=== PATIENT | female | born 2000 | race African-American/Black ===

== ENCOUNTER 2022-05-09 19:07 | Emergency (ER) | payer OTHER ==
[~2022-05-09] VITALS: Ht 165.1 cm; Wt 62.6 kg
[2022-05-09 19:23] VITALS: BP 134/83
--- NOTE | 2022-05-09 19:31 | NUR ---
TO BED 2 FOLLOWING TRIAGE
--- NOTE | 2022-05-09 19:52 | NUR ---
22 Y/O FEMALE BIBS FROM HOME, C/O ABD PAIN X1 WK. PT STATES SHE HAS BEEN IN PAIN FOR THE LAST WEEK BUT GOT WORSE THESE LAST 2 DAYS. PT COMPLAINING OF CONSTANT PAIN BELOW HER BELLY BUTTON THAT RADIATES TO HER WHOLE BODY. 7/10 AND SHARP PAIN, NAUSEA, WEAKNESS, AND FEVER. DENIES DIARREA OR VOMIT. SKIN IS PINK, WARM, AND DRY. UNLABORED BREATHING AND SPEAKING IN FULL SENTENCES. AMBULATORY W/O ASSISTANCE. PT STATES THAT SHE HAS HAD A PERENIAL TEAR FROM [place] [facility] AND ASSOCIATED PAIN WITH URINATION. PT CLAIMS THERE IS WHITE VAGINAL DC W/O ODOR. HX: ANX AND APPENDECTOMY NKA MED: CONTROL
--- NOTE | 2022-05-09 19:59 | NUR ---
MATH INSTRUCTOR AT BEDSIDE
[2022-05-09 20:09] LABS: BASOPHILS % (AUTO) 0.4 % (0.0-2.0); EOSINOPHILS % (AUTO) 0.2 % (0.0-4.0); HEMATOCRIT 40.5 % (36-48); HEMOGLOBIN 13.4 g/dL (12.0-16.0); LYMPHOCYTES # (AUTO) 1.8 K/uL (2.5-16.5); LYMPHOCYTES % (AUTO) 23.5 % (20.5-51.1); MEAN CORPUSCULAR HEMOGLOBIN 29 pg (27-31); MEAN CORPUSCULAR HGB CONC 33 g/dL (33-37); MEAN CORPUSCULAR VOLUME 88.9 fL (80-94); MONOCYTES # (AUTO) 0.8 K/uL (0.8-1.0); NEUTROPHILS # (AUTO) 5.1 K/uL (1.8-7.7); NEUTROPHILS % (AUTO) 65.9 % (42.2-75.2); PLATELET COUNT (AUTO) 264 K/uL (140-450); RED BLOOD CELL COUNT(AUTO) 4.56 MIL/uL (4.20-5.40); RED CELL DISTRIBUTION WIDTH 12.7 % (11.6-13.7); WHITE BLOOD COUNT (AUTO) 7.8 K/uL (4.8-10.8)
[2022-05-09 20:24] LABS: BILIRUBIN,URINE NEGATIVE (NEGATIVE); BLOOD, URINE 1+ (NEGATIVE); COLOR,URINE YELLOW (YELLOW); LEUKOCYTE ESTERASE ,URINE TRACE (NEGATIVE); NITRITE, URINE NEGATIVE (NEGATIVE); UGLUCOSE NEGATIVE (NEGATIVE)
[2022-05-09 20:30] LABS: APPEARANCE,URINE HAZY (CLEAR)
--- NOTE | 2022-05-09 20:30 | NUR ---
DR MIRELES AT BEDSIDE EXAMINING PT
[2022-05-09 20:36] LABS: ALBUMIN 3.5 g/dL (3.4-5.0); ANION GAP 15.4 (8-16); CARBON DIOXIDE 25.2 mmol/L (21-32); CREATININE 1.1 mg/dL (0.6-1.3); POTASSIUM 3.6 mmol/L (3.5-5.1); TOTAL BILIRUBIN 0.4 mg/dL (0.0-1.0)
[2022-05-09] MEDS ORDERED: LORazepam 2 MG/ML VIAL IVP ONE (20:40)
[2022-05-09] MEDS ORDERED: KETOROLAC 30 MG/ML VIAL IVP ONE (20:40)
[2022-05-09] MEDS ORDERED: NACL 0.9% 1,000 ML IV ONE (20:40)
[2022-05-09 20:43] LABS: RBC,URINE 0-5 /HPF (0-5)
[2022-05-09] MEDS ORDERED: cefTRIAXone 1,000 MG VIAL ONE (21:01)
--- NOTE | 2022-05-09 22:15 | NUR ---
ULTRASOUND AT BEDSIDE
[2022-05-09] MEDS ORDERED: CEPH250C16 PO (22:16)
[2022-05-09] MEDS ORDERED: IBUP-2213 PO (22:16)
--- NOTE | 2022-05-09 22:39 | NUR ---
dr valdez at bedside
[2022-05-09] MEDS ORDERED: ACETAMINOPHEN EXTRA STRENGTH 500 MG TAB PO ONE (23:15)
[2022-05-09] MEDS ORDERED: CEPH-588 PO (23:19)
--- NOTE | 2022-05-09 23:36 | NUR ---
COVID/SATHYA AND COVID SWABS COLLECTED AND WALKED TO LAB
[2022-05-10] MEDS ORDERED: TAM75 PO (00:03)
[2022-05-10 00:25] VITALS: BP 127/84
--- NOTE | 2022-05-10 00:26 | NUR ---
Patient discharged with v/s stable. Written and verbal after care instructions given and explained. Patient alert, oriented and verbalized understanding of instructions. Ambulatory with steady gait. All questions addressed prior to discharge. ID band removed. Patient advised to follow up with PMD. Rx of KEFLEX AND TAMIFLU given. Patient educated on indication of medication including possible reaction and side effects. Opportunity to ask questions provided and answered. VSS, A/OX4, UNLABORED BREATHING, AMULATORY, AND CALM DEMEANOR.
[2022-05-12 13:05] LABS: APPEARANCE,URINE HAZY (CLEAR); BILIRUBIN,URINE NEGATIVE (NEGATIVE); BLOOD, URINE 2+ (NEGATIVE); COLOR,URINE YELLOW (YELLOW); LEUKOCYTE ESTERASE ,URINE TRACE (NEGATIVE); NITRITE, URINE NEGATIVE (NEGATIVE); UGLUCOSE NEGATIVE (NEGATIVE)
[2022-05-12 13:29] LABS: CALCIUM OXALATE CRYSTALS,UR None Seen /HPF (None Seen); COARSE GRANULAR CASTS,URINE None Seen /LPF (None Seen); FINE GRANULAR CASTS,URINE None Seen /LPF (None Seen); HYALINE CASTS, URINE None Seen /LPF (None Seen); OTHER CASTS, URINE None Seen /LPF (None Seen); OTHER CRYSTALS,URINE None Seen /HPF (None Seen); RED BLOOD CELL CASTS,URINE None Seen /LPF (None Seen); TRICHOMONAS,URINE None Seen /HPF (None Seen); TRIPLE PHOSPHATE CRYSTAL,UR None Seen /HPF (None Seen); URIC ACID CRYSTALS,URINE None Seen /HPF (None Seen); URINE AMORPHOUS URATE None Seen /HPF (None Seen); WAXY CASTS,URINE None Seen /LPF (None Seen); YEAST,URINE None Seen /HPF (None Seen)
== END 2022-05-10 00:28 | disposition home or self-care (01) ==
LOC: MED 19:07
DX: N39.0 Urinary tract infection, site not specified (principal); Z20.822 Contact with and (suspected) exposure to COVID-19; J10.1 Influenza due to other identified influenza virus with other respiratory manifestations
CPT/HCPCS: 36415; 76856; 80053; 81001; 81025; 83690; 85025; 87086; 87426; 87491; 87804; 93976; 96365; 96375; 99284; J0696; J1885; J2060; J7030; Q0092

== ENCOUNTER 2022-05-12 10:42 | Emergency (ER) | payer OTHER ==
[~2022-05-12] VITALS: Ht 165.1 cm; Wt 63.5 kg
[~2022-05-12 10:42] MED LIST: CEPH-588 PO; IBUP-2213 PO; TAM75 PO
[2022-05-12 11:11] VITALS: BP 130/61
--- NOTE | 2022-05-12 11:15 | NUR ---
PT TO WAIT IN LOBBY.
--- NOTE | 2022-05-12 11:23 | NUR ---
22 Y/O FEMALE C/O RIGHT FLANK PAIN 04/08 X3DAYS RADIATING TO LOWER PELVIC AREA. DENIES DYSURIA, DENIES DISCHARGE, DENIES HEMATURIA. DENIES FEVER/CHILLS. STATES +DIZZY, +N/V. PT STATES SHE WAS SEEN HERE X3DAYS AGO AND DX WITH UTI BUT SYMPTOMS HAVE WORSENED, HAS BEEN TAKING PRESCRIBED ABX. PMH: HTN, ASTHMA NKA
--- NOTE | 2022-05-12 12:19 | NUR ---
PA QUINN AT BEDSIDE EVALUATING PT
[2022-05-12] MEDS ORDERED: KETOROLAC 15 MG/ML VIAL IVP ONE (12:25)
[2022-05-12] MEDS ORDERED: NACL 0.9% 1,000 ML IV ONE (12:25)
--- NOTE | 2022-05-12 13:04 | NUR ---
PT TAKEN TO CT VIA TIANNA
--- NOTE | 2022-05-12 13:15 | NUR ---
PT BACK FROM CT.
[2022-05-12 13:16] LABS: BASOPHILS % (AUTO) 0.5 % (0.0-2.0); EOSINOPHILS # (AUTO) 0.1 K/uL (0-0.4); EOSINOPHILS % (AUTO) 0.9 % (0.0-4.0); HEMATOCRIT 40.6 % (36-48); HEMOGLOBIN 13.5 g/dL (12.0-16.0); MEAN CORPUSCULAR HEMOGLOBIN 30 pg (27-31); MEAN CORPUSCULAR HGB CONC 33 g/dL (33-37); MONOCYTES # (AUTO) 0.5 K/uL (0.8-1.0); MONOCYTES % (AUTO) 7.4 % (1.7-9.3); NEUTROPHILS # (AUTO) 4.7 K/uL (1.8-7.7); NEUTROPHILS % (AUTO) 64.2 % (42.2-75.2); PLATELET COUNT (AUTO) 285 K/uL (140-450); RED BLOOD CELL COUNT(AUTO) 4.57 MIL/uL (4.20-5.40); RED CELL DISTRIBUTION WIDTH 12.9 % (11.6-13.7); WHITE BLOOD COUNT (AUTO) 7.3 K/uL (4.8-10.8)
[2022-05-12 13:20] LABS: ALBUMIN 3.2 g/dL (3.4-5.0); ANION GAP 8.1 (8-16); CARBON DIOXIDE 30.4 mmol/L (21-32); CREATININE 0.8 mg/dL (0.6-1.3); POTASSIUM 4.5 mmol/L (3.5-5.1); TOTAL BILIRUBIN 0.3 mg/dL (0.0-1.0)
[2022-05-12 14:00] LABS: APPEARANCE,URINE HAZY (CLEAR); BILIRUBIN,URINE NEGATIVE (NEGATIVE); BLOOD, URINE 2+ (NEGATIVE); COLOR,URINE YELLOW (YELLOW); LEUKOCYTE ESTERASE ,URINE TRACE (NEGATIVE); NITRITE, URINE NEGATIVE (NEGATIVE); PH,URINE 6.5 (5.0-9.0); UGLUCOSE NEGATIVE (NEGATIVE)
[2022-05-12 14:13] LABS: CALCIUM OXALATE CRYSTALS,UR None Seen /HPF (None Seen); OTHER CRYSTALS,URINE None Seen /HPF (None Seen); TRICHOMONAS,URINE None Seen /HPF (None Seen); TRIPLE PHOSPHATE CRYSTAL,UR None Seen /HPF (None Seen); URIC ACID CRYSTALS,URINE None Seen /HPF (None Seen); URINE AMORPHOUS URATE None Seen /HPF (None Seen); YEAST,URINE None Seen /HPF (None Seen)
[2022-05-12] MEDS ORDERED: ONDA-188 PO (14:13)
[2022-05-12] MEDS ORDERED: BEN10 PO (14:13)
[2022-05-12 14:14] LABS: COARSE GRANULAR CASTS,URINE None Seen /LPF (None Seen); FINE GRANULAR CASTS,URINE None Seen /LPF (None Seen); HYALINE CASTS, URINE None Seen /LPF (None Seen); OTHER CASTS, URINE None Seen /LPF (None Seen); RED BLOOD CELL CASTS,URINE None Seen /LPF (None Seen); WAXY CASTS,URINE None Seen /LPF (None Seen)
[2022-05-12 14:17] VITALS: BP 118/65
--- NOTE | 2022-05-12 14:17 | NUR ---
Patient discharged with v/s stable. Written and verbal after care instructions given and explained. Patient alert, oriented and verbalized understanding of instructions. Ambulatory with steady gait. All questions addressed prior to discharge. ID band removed. Patient advised to follow up with PMD. Rx of AMA DEAL given. Patient educated on indication of medication including possible reaction and side effects. Opportunity to ask questions provided and answered.
--- NOTE | 2022-05-12 14:18 | NUR ---
The patient's care was reviewed and supervised by Sally Marino RN.
== END 2022-05-12 14:17 | disposition home or self-care (01) ==
LOC: MED 10:42
DX: R10.33 Periumbilical pain (principal); B34.9 Viral infection, unspecified; Z79.899 Other long term (current) drug therapy; Z90.49 Acquired absence of other specified parts of digestive tract
CPT/HCPCS: 36415; 74177; 80053; 81001; 81025; 83690; 85025; 96361; 96374; 99285; J1885; J7030; Q9967